=== PATIENT | female | born 1945 | race Caucasian/White ===

== ENCOUNTER → 2020-04-16 09:06 | Outpatient (CLI) | payer MEDICARE, OTHER, SELFPAY ==
--- NOTE | ~2020-04-16 | DEXA_ITS ---
Bone Density Report Name: Lolis Ely Age: 75 Sex: Female Ethnicity: White Date of : 1945 Indication: osteopenia; monitoring treatment; height loss; hysterectomy; Referring Provider: MICHAEL RICH Study: Bone densitometry was performed. Exam Date: April 16, 2020 Accession number: [id number] Bone Density: Region BMD T-score Z-score Classification AP Spine (L1-L4) 0.771 -2.5 -0.1 Osteoporosis Femoral Neck (Left) 0.491 -3.2 -1.1 Osteoporosis Total Hip (Left) 0.615 -2.7 -0.8 Osteoporosis Femoral Neck (Right) 0.534 -2.8 -0.7 Osteoporosis Total Hip (Right) 0.628 -2.6 -0.7 Osteoporosis Total Hip Mean 0.622 -2.7 -0.8 Osteoporosis World Health Organization criteria for BMD impression classify patients as: Normal (T-score at or above -1.0), Osteopenia (T-score between -1.0 and -2.5), or Osteoporosis (T-score at or below -2.5). 10-year Fracture Risk: FRAX not reported because: Some T-score for Spine Total or Hip Total or Femoral Neck at or below -2.5 Treated for osteoporosis Previous Exams: Region Exam Age BMD T-score BMD Change BMD Change Date g/cm2 vs Baseline vs Previous AP Spine(L1-L4) 04/16/2020 75 0.771 -2.5 -0.099 -0.099 11/08/2002 57 0.870 -1.6 Total Hip(Left) 04/16/2020 75 0.615 -2.7 -0.102 -0.102 11/08/2002 57 0.717 -1.8 Total Hip(Right) 04/16/2020 75 0.628 -2.6 -0.141 -0.141 11/08/2002 57 0.769 -1.4 *Denotes significance at 95% confidence level, LSC for AP Spine = 0.022 g/cm2, LSC for Total Hip = 0.027 g/cm2 Clinical Information Provided by Patient: Is being treated for osteoporosis Has used the following medications: Fosamax (i.e. alendronate), Vitamin D, Calcium Has the following medical conditions: Hysterectomy Patient maximum height was 67 Menopause Age: 46 No regular weight bearing exercise Onset of menses at age 12 Number of children 2 Impression: The patient has osteoporosis, based on the Left Femoral Neck T-score. No significant bone loss was observed. Discussion: PATIENT UNDER TREATMENT WITH NO SIGNIFICANT BMD LOSS SINCE LAST EXAM. In an untreated patient, BMD typically declines with age. A lack of decline or gain is usually a sign that treatment is efficacious and fracture risk is reduced. It is important to ask patients whether they are taking their medications and to encourage continued and appropriate compliance with their osteoporosis therapies
== END ==
PROVIDERS: PCP Family Medicine
DX: M80.00XD Age-related osteoporosis with current pathological fracture, unspecified site, subsequent encounter for fracture with routine healing (principal); Z78.0 Asymptomatic menopausal state
CPT/HCPCS: 77080

== ENCOUNTER → 2021-04-26 12:41 | Outpatient (CLI) | payer MEDICARE, OTHER, SELFPAY ==
--- NOTE | ~2021-04-26 | DEXA_ITS ---
Bone Density Report Name: Lolis Ely Age: 76 Sex: Female Ethnicity: White Date of : 1945 Indication: postmenopausal osteoporosis; monitoring treatment; height loss; prior fracture; hysterectomy; Referring Provider: MICHAEL RICH Study: Bone densitometry was performed. Exam Date: April 26, 2021 Accession number: [id number] Bone Density: Region BMD T-score Z-score Classification AP Spine (L1-L4) 0.791 -2.3 0.2 Osteopenia Femoral Neck (Left) 0.493 -3.2 -1.0 Osteoporosis Total Hip (Left) 0.640 -2.5 -0.6 Osteoporosis Femoral Neck (Right) 0.503 -3.1 -0.9 Osteoporosis Total Hip (Right) 0.647 -2.4 -0.5 Osteopenia Total Hip Mean 0.644 -2.5 -0.6 Osteopenia World Health Organization criteria for BMD impression classify patients as: Normal (T-score at or above -1.0), Osteopenia (T-score between -1.0 and -2.5), or Osteoporosis (T-score at or below -2.5). 10-year Fracture Risk: FRAX not reported because: Some T-score for Spine Total or Hip Total or Femoral Neck at or below -2.5 Treated for osteoporosis Previous Exams: Region Exam Age BMD T-score BMD Change BMD Change Date g/cm2 vs Baseline vs Previous AP Spine(L1-L4) 04/26/2021 76 0.791 -2.3 -0.079 0.020 04/16/2020 75 0.771 -2.5 -0.099 -0.099 11/08/2002 57 0.870 -1.6 Total Hip(Left) 04/26/2021 76 0.640 -2.5 -0.077 0.025 04/16/2020 75 0.615 -2.7 -0.102 -0.102 11/08/2002 57 0.717 -1.8 Total Hip(Right) 04/26/2021 76 0.647 -2.4 -0.122 0.019 04/16/2020 75 0.628 -2.6 -0.141 -0.141 11/08/2002 57 0.769 -1.4 *Denotes significance at 95% confidence level, LSC for AP Spine = 0.022 g/cm2, LSC for Total Hip = 0.027 g/cm2 Clinical Information Provided by Patient: Has had a low trauma fracture Is being treated for osteoporosis Has used the following medications: Vitamin D, Calcium, Evenity (shots) Has the following medical conditions: Hysterectomy Patient maximum height was 67 Menopause Age: 46 No regular weight bearing exercise Onset of menses at age 12 Number of children 2 Impression: The patient has established osteoporosis, based on the Left Femoral Neck T-score and the existence of a prior fracture. The patient has risk factors, including: previous fracture. No significant bone loss was observed. Discussion: PATIENT UNDER TREATMENT WITH NO SIGNIFICANT BMD
== END ==
DX: M80.08XA Age-related osteoporosis with current pathological fracture, vertebra(e), initial encounter for fracture (principal); M80.021A Age-related osteoporosis with current pathological fracture, right humerus, initial encounter for fracture; Z79.899 Other long term (current) drug therapy; M85.89 Other specified disorders of bone density and structure, multiple sites
CPT/HCPCS: 77080

== ENCOUNTER 2021-09-09 18:32 | Emergency (ER) | payer MEDICARE, OTHER, SELFPAY ==
--- NOTE | ~2021-09-09 | XR_ITS ---
EXAMINATION: XR abdomen/kub 1V INDICATION: Constipation and back pain TECHNIQUE: Supine views of the abdomen were obtained on 2 radiographs. COMPARISON: None FINDINGS: There is mild atelectasis of the lung bases. Stones are present in the gallbladder. There a re no dilated loops of bowel. There is mild osteoarthritis of the hips. There appears to be a sliding hiatal hernia. No free intraperitoneal gas is identified. IMPRESSION: 1. . No radiographic correlate for the patient's symptoms. Reviewed, dictated and finalized at location F. [employer]
[2021-09-09 18:41] VITALS: BP 152/80; PULSE 94; RESP 18; TEMP 36.9; O2SAT 96
[2021-09-09 22:03] VITALS: PULSE 80; RESP 20; O2SAT 99
--- NOTE | 2021-09-10 00:53 | ED.GENADULT ---
HPI - General Adult General Chief complaint: Back Pain/Injury Stated complaint: constipation Time Seen by Provider: 09/09/21 22:09 History of Present Illness HPI narrative: Patient is a 76-year-old female who presents ER with reports of constipation. Reports chronic back pain that she has been getting adjusted to chiropractor over the last 3 to 4 weeks. Realized that she was constipated had not had a bowel movement for about a week. On she received an enema from her friend who is an RN. This removed a lot of firm stool. Patient had bowel movements daily after that. Her last movement was this morning. She reports since then she has not had another bowel movement and she has not been able to urinate. She reports she has not been eating or drinking throughout the day. Pain is only mild at this time is on the right side of her back near her ribs. She has had no recent falls. No lower extremity numbness or tingling. No pelvic numbness. No lower extremity weakness. Denies fevers/chills. Related Data Allergies Allergy/AdvReac Type Severity Reaction Status Date / Time aspirin Allergy Unknown Verified 09/09/21 18:48 Review of Systems Review of Systems: All systems reviewed & are unremarkable except as noted in HPI and below Constitutional: Constitutional: Denies chills, Denies fever(s) and Denies weakness ENT: Denies nasal congestion and Denies sore throat Cardiovascular: Cardiovascular: Denies chest pain and Denies radiating jaw, neck or arm pain Gastrointestinal: Gastrointestinal: Denies abdominal pain, Reports bloating, Reports constipation, Denies nausea and Denies vomiting Genitourinary: Genitourinary: Denies nocturia, Denies dysuria and Denies urinary incontinence Musculoskeletal: Musculoskeletal: Reports back pain and Denies muscle cramps Neurologic: Denies focal weakness and Denies numbness PMFSH Past Medical History Medical History (Updated 09/10/21 @ 01:47 by Marito Garcia MD) Healthy female adult Surgical History Surgical History (Updated 09/10/21 @ 01:10 by Marito Garcia MD) No history of previous surgery Social History Social History (Updated 09/10/21 @ 01:10 by Marito Garcia MD) Smoking status: Never smoker Exam Narrative: GENERAL: Well-appearing, well-nourished, and in no acute distress. HEAD: Normocephalic, atraumatic. CHEST: Clear to auscultation. No respiratory distress. HEART: Regular rate and rhythm. Normal peripheral pulses. ABDOMEN: Soft, nontender, nondistended, normal active bowel sounds. EXTREMITIES: Normal range of motion. No edema. SKIN: Warm, dry, no rash. NEURO: Alert and oriented x3. PSYCH: Normal mood and affect. Course Course Emergency Course: Patient informed results. Has an appointment with a pain specialist on Monday regarding her back. Vital Signs Vital signs: Vital Signs Temperature 98.5 F 09/09/21 18:41 Pulse Rate 94 09/09/21 18:41 Respiratory Rate 18 09/09/21 18:41 Blood Pressure 152/80 H 09/09/21 18:41 Pulse Oximetry 96 09/09/21 18:41 Temperature 98.5 F 09/09/21 18:41 Pulse Rate 80 09/09/21 22:03 Respiratory Rate 20 09/09/21 22:03 Blood Pressure 152/80 H 09/09/21 18:41 Pulse Oximetry 99 09/09/21 22:03 Medical Decision Making Vital Signs Vital Signs: Vital Signs Temperature 98.5 F 09/09/21 18:41 Pulse Rate 94 09/09/21 18:41 Respiratory Rate 18 09/09/21 18:41 Blood Pressure 152/80 H 09/09/21 18:41 Pulse Oximetry 96 09/09/21 18:41 Temperature 98.5 F 09/09/21 18:41 Pulse Rate 80 09/09/21 22:03 Respiratory Rate 20 09/09/21 22:03 Blood Pressure 152/80 H 09/09/21 18:41 Pulse Oximetry 99 09/09/21 22:03 Imaging Data Radiologist's impression: ITS Impressions Abdomen X-Ray 09/09/21 22:58 IMPRESSION: 1. . No radiographic correlate for the patient's symptoms. Discharge Plan Discharge Clinical Impression: Abdominal bloating, Chron
[2021-09-10 02:04] VITALS: BP 118/79; PULSE 69; RESP 18; O2SAT 100
== END 2021-09-10 02:05 | disposition home or self-care (01) ==
PROVIDERS: Emergency Provider Emergency Medicine; PCP Pediatrics
DX: R14.0 Abdominal distension (gaseous) (principal); G89.29 Other chronic pain; M54.9 Dorsalgia, unspecified
CPT/HCPCS: 74018; 99283